=== PATIENT | male | born 1995 | race Caucasian/White ===

== ENCOUNTER 2024-09-26 10:23 | Emergency (ER) | payer BC ==
[2024-09-26] MEDS: diphenhydrAMINE 50 MG/ML SDV IVPUSH ONE (10:37)
[2024-09-26] MEDS: EPINEPHrine 1 MG/ML SDV IM ONE (10:41)
== END 2024-09-26 12:44 | disposition home or self-care (01) ==
LOC: DL.ED 10:23
DX: T88.6XXA Anaphylactic reaction due to adverse effect of correct drug or medicament properly administered, initial encounter (principal); T50.Z95A Adverse effect of other vaccines and biological substances, initial encounter; F17.210 Nicotine dependence, cigarettes, uncomplicated; Z88.8 Allergy status to other drugs, medicaments and biological substances; Z79.899 Other long term (current) drug therapy; Z86.16 Personal history of COVID-19
CPT/HCPCS: 96372; 96374; 96375; 99284; J0169; J1200; J1308; 99283

== ENCOUNTER 2025-01-02 16:19 | Emergency (ER) | payer BC ==
[2025-01-02] MEDS ORDERED: Sodium Chloride 0.9% 10 ML Syringe FLUSH PRN (16:33)
[2025-01-02] MEDS: methylPREDNISolone Sodium Succinate 125 MG/2 ML SDV IVPUSH ONE (16:54)
[2025-01-02] MEDS: Magnesium Sulfate 2 GM/50 mL 2 GM in Premix Bag 1 BAG IV ONE (16:54)
== END 2025-01-02 18:45 | disposition home or self-care (01) ==
LOC: DL.ED 16:19
DX: J45.901 Unspecified asthma with (acute) exacerbation (principal); Z88.8 Allergy status to other drugs, medicaments and biological substances; Z86.16 Personal history of COVID-19
CPT/HCPCS: 71045; 93005; 96365; 96375; 99285; J2919; J3475; 93010; 99284